=== PATIENT | male | born 1970 | race Caucasian/White ===

== ENCOUNTER 2019-05-05 21:22 | Emergency (ER) | payer OTHER, SELFPAY ==
[2019-05-05] MEDS ORDERED: Ondansetron ODT 4 MG TAB ONE (22:40)
[2019-05-05] MEDS ORDERED: Acetaminophen 500 MG TAB ONE (22:40)
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
== END 2019-05-05 23:30 | disposition home or self-care (01) ==
LOC: ERS 21:22
DX: S70.12XA Contusion of left thigh, initial encounter (principal); M54.5 Low back pain; R51 Headache; K21.9 Gastro-esophageal reflux disease without esophagitis; Z79.899 Other long term (current) drug therapy; V43.52XA Car driver injured in collision with other type car in traffic accident, initial encounter
CPT/HCPCS: 70450; 72125; 72131; Q0162

== ENCOUNTER 2021-11-10 16:10 | Outpatient (CLI) | payer OTHER | END 2021-11-10 16:11 | disposition home or self-care (01) | LOC: BICRAD 16:10 | PROVIDERS: ATTEND Family Medicine | DX: M79.671 Pain in right foot (principal); M77.51 Other enthesopathy of right foot and ankle ==

== ENCOUNTER 2024-06-18 08:01 | Outpatient (CLI) | payer BC ==
[2024-06-18] MEDS ORDERED: Iopamidol 370 76% 100 ML VIAL ONE (14:53)
== END 2024-06-18 08:02 | disposition home or self-care (01) ==
LOC: BICCT 08:01
PROVIDERS: ATTEND Family Medicine
DX: R10.84 Generalized abdominal pain (principal); R06.00 Dyspnea, unspecified; R91.8 Other nonspecific abnormal finding of lung field
CPT/HCPCS: 36415; 71260; 74177; 82565; Q9967